=== PATIENT | male | born 1970 | race Caucasian/White ===

== ENCOUNTER 2021-08-17 09:12 | Inpatient (IN) | payer OTHER, SELFPAY ==
[~2021-08-17] VITALS: Ht 172.7 cm; Wt 81.6 kg
[2021-08-17] MEDS ORDERED: NS IRRIG SOLN 1000 ML IR ONE (10:59)
[2021-08-17] MEDS ORDERED: ARTICAINE HCL/EPINEPHRINE 4%/1:200,000 BIT 1.7 ML CARTRIDGE IJ ONE (10:59)
[2021-08-17] MEDS ORDERED: NS 250 ML BAG IV ONE (10:59)
[2021-08-17 16:27] VITALS: BP_SYST 109
== END 2021-08-17 12:10 | disposition home or self-care (01) | DRG 145 ==
LOC: SMU 09:12 → EDSTATUS 11:00
PROVIDERS: ADMIT Dentist General Practice; ATTEND Dentist General Practice
PROC: 0NUR0JZ Supplement Maxilla with Synthetic Substitute, Open Approach (ICD-10-PCS; 2021-08-17)
PROC: 0NUV0JZ Supplement Left Mandible with Synthetic Substitute, Open Approach (ICD-10-PCS; principal; 2021-08-17 10:15)
DX: M27.2 Inflammatory conditions of jaws (principal); Z20.822 Contact with and (suspected) exposure to COVID-19
CPT/HCPCS: 36415; 70140; 82962; J7050

== ENCOUNTER 2021-11-07 07:42 | Day surgery (SDC) | payer OTHER ==
[~2021-11-07] VITALS: Ht 172.7 cm; Wt 75.7 kg
[2021-11-07] MEDS ORDERED: BENZOCAINE 20% GEL 32 GM BOTTLE MM ONE (09:00)
[2021-11-07] MEDS ORDERED: ARTICAINE HCL/EPINEPHRINE 4%/1:200,000 BIT 1.7 ML CARTRIDGE IJ ONE (09:00)
[2021-11-07] MEDS ORDERED: NS IRRIG SOLN 1000 ML IR ONE (09:00)
[2021-11-07] MEDS ORDERED: NS 250 ML IV.SOLN IV ONE (09:00)
[2021-11-07 14:35] VITALS: BP_SYST 110
== END 2021-11-07 12:13 | disposition home or self-care (01) ==
LOC: SDS 07:42 → SMU 07:43 → SDS 12:13
PROVIDERS: ATTEND Dentist General Practice
DX: M27.2 Inflammatory conditions of jaws (principal); K05.6 Periodontal disease, unspecified; E78.5 Hyperlipidemia, unspecified; M89.8X0 Other specified disorders of bone, multiple sites; M26.603 Bilateral temporomandibular joint disorder, unspecified; G47.33 Obstructive sleep apnea (adult) (pediatric); K12.2 Cellulitis and abscess of mouth; Z79.899 Other long term (current) drug therapy
CPT/HCPCS: 21026; 21210; 21248; 36415; 41826; 70140; 82962; 87426; C1713; J7050